=== PATIENT | female | born 2005 | race African-American/Black ===

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

== ENCOUNTER 2023-03-04 21:56 | Inpatient (IN) | payer MEDICAID, OTHER ==
[~2023-03-04] VITALS: Ht 172.7 cm; Wt 120.9 kg
[2023-03-04 22:09] VITALS: BP 134/76
[2023-03-04] MEDS ORDERED: LACTATED RINGERS 1,000 ML 500 ML IV PRN (22:30)
[2023-03-04] MEDS ORDERED: MINERAL OIL 30 ML UDC TOP PRN (22:30)
[2023-03-04 22:59] LABS: BASOPHILS % (AUTO) 0 % (0-10); EOSINOPHILS # (AUTO) 0.1 10^3/uL (0.0-0.3); EOSINOPHILS % (AUTO) 1 % (0-10); HEMATOCRIT 26 % (35-52); LYMPHOCYTES # (AUTO) 2.2 10^3/uL (1.0-4.0); LYMPHOCYTES % (AUTO) 23 % (12-44); MEAN CORPUSCULAR HEMOGLOBIN 24 pg (25-34); MEAN CORPUSCULAR HGB CONC 31 g/dL (32-36); MEAN CORPUSCULAR VOLUME 76 fL (80-99); MEAN PLATELET VOLUME 11.9 fL (9.0-12.2); MONOCYTES # (AUTO) 0.7 10^3/uL (0.0-1.0); MONOCYTES % (AUTO) 7 % (0-12); NEUTROPHILS # (AUTO) 6.6 10^3/uL (1.8-7.8); NEUTROPHILS % (AUTO) 69 % (42-75); PLATELET COUNT 223 10^3/uL (130-400); WHITE BLOOD COUNT 9.6 10^3/uL (4.3-11.0)
[2023-03-04] MEDS: D5 LR 1,000 ML IV SOLN 1,000 ML IV SCH (23:45)
[2023-03-04] MEDS ORDERED: D5 LR 1,000 ML IV SOLN 1,000 ML IV ONE (23:46)
[2023-03-05] VITALS (63 sets, daily range): BP systolic 87–147; BP diastolic 48–85
[2023-03-05] MEDS ORDERED: fentaNYL 2 mcg/ml BUPIVA 0.125 100 ML ONE (01:21)
[2023-03-05] MEDS: fentaNYL 2 mcg/ml BUPIVA 0.125 100 ML EPI SCH ×2 (02:29→10:11)
[2023-03-05] MEDS ORDERED: METOCLOPRAMIDE INJ 10 MG/2 ML IV PRN (03:15)
[2023-03-05] MEDS ORDERED: NALOXONE 0.4 MG/ML 1 ML VIAL IV PRN ×2 (03:15)
[2023-03-05] MEDS ORDERED: LACTATED RINGERS 1,000 ML 1,000 ML IV SCH (03:15)
[2023-03-05] MEDS ORDERED: ONDANSETRON INJECTION 4 MG/2 ML (SDV) IV PRN (03:15)
[2023-03-05] MEDS ORDERED: diphenhydrAMINE INJ 50 MG/ML VIAL IV PRN (03:15)
[2023-03-05] MEDS ORDERED: CATHETER FLUSH 10 ML SYR IV SCH ×2 (06:00→22:00)
[2023-03-05] MEDS ORDERED: OXYTOCIN DRIP PRE-MIX 500 ML IV SCH (08:15)
--- NOTE | 2023-03-05 08:28 | Diagnostic Imaging Report ---
INDICATION: TECHNIQUE: Multiple real-time grayscale images were obtained over the gravid uterus. COMPARISON: None FINDINGS: Anterior placenta. No melani-placental hemorrhage. Biometrical measurements are as follows: Biparietal 9.61 cm, age 39 weeks 2 days. Head circumference 33.70 cm, age 38 weeks 5 days. Abdominal circumference 35.36 cm, age 39 weeks 2 days. Femur length 7.69 cm, age 39 weeks 3 days. Sonographic estimate age: 39 weeks 2 days. Sonographic estimated date of delivery: 03/09/23. Estimated Weight: 3718 gm (+/- 543 gm). LMP percentile: 67%. heart rate: 147 beats per minute. number: 1 of 1. IMPRESSION: Single live intrauterine measuring at 39 weeks and 2 days with heart tones of 147 BPM. No placental abnormality identified. Dictated by: Dictated on workstation # [id number]
[2023-03-05] MEDS: D5 LR 1,000 ML IV SOLN 1,000 ML IV SCH (08:49)
--- NOTE | 2023-03-05 09:07 | History & Physical-OB ---
OB - Chief Complaint & HPI Date/Time Date of Admission: Date of Admission: Mar 04, 2023 at 22:16 Date seen by a Provider: Mar 05, 2023 Time Seen by a Provider: 07:30 Chief Complaint/History OB-Reason for Admission/Chief: Vaginal bleeding Hx : 2 Hx Para: 2 Expected Date of Delivery: Mar 08, 2023 Gestational Age in Weeks: 39 Gestational Age in Days: 3 Other reason for admission: 17 yo F that presented to L&D after feeling a pop and now having vaginal bleeding. Denies any pain but having some cramping. FHT reactive History of Labs O+, Ab neg, Rub Imm HIV/RPR/HepB/C NR GBS neg Allergies and Home Medications Allergies Coded Allergies: No Known Drug Allergies (Unverified , 05/21/10) Patient Home Medication List Home Medication List Reviewed: Yes Famotidine (Pepcid) 20 Mg Tablet, 20 MG PO BID Prescribed by: JORGE AZUL on 03/24/15 1449 Ferrous Sulfate (Iron) 325 Mg Tablet, 325 MG PO DAILY, (Reported) Entered as Reported by: CHAD YOUNG on 02/03/211955 Vit No.124/Iron/FA ( Vitamin Tablet) 1 Each Tablet, 1 EACH PO DAILY, (Reported) Entered as Reported by: CHAD YOUNG on 02/03/211954 OB - History Hx of Present Care: Yes Obstetrical Complications: None Medical Complications: None Obstetrical History Hx : 2 Hx Para: 1 Number of Living Children: 1 Delivery History Hx Blood Disorders: No Adverse Rxn to Tranfusion: No Patient Past Medical History no chronic medical problems Social History/Family History Alcohol Use: Denies Use Recreational Drug Use: No 2nd Hand Smoke Exposure: Yes Immunizations Influenza Vaccine Up-to-Date: No; Not Current Tetanus Booster (TDap): Less than 5yrs Rubella: immune RPR/VDRL: Negative GBS Status: Negative HBsAG: Negative OB - Admission Exam Physical Exam Vitals: Vital Signs 03/05/23 03/05/23 03/05/23 03/05/23 07:00 07:10 07:55 08:40 Temp 36.4 Pulse 87 Resp 18 B/P (MAP) 106/56 (73) Pulse Ox 100 O2 Delivery Room Air HEENT: NCAT Heart: Rhythm Normal Lungs: Clear Abdomen: Gravid Cervical Dilatation: 4cm Effacement: 75% Station: -1 Membranes: Ruptured Amniotic Fluid: Other (bloody) Heart Rate: 140's Accelerations: Accelerations Present Decelerations: No Decelerations Short Term Variability: Present Associate Professor Of Anthropology Variability: Average (6-25) Contractions on Admission: >10 Minutes Apart Intensity: Moderate Labs Laboratory Tests Test 03/04/23 22:45 Range/Units White Blood Count 9.6 4.3-11.0 10^3/uL Red Blood Count 3.36 L 3.80-5.11 10^6/uL Hemoglobin 8.0 L 11.5-16.0 g/dL Hematocrit 26 L 35-52 % Mean Corpuscular Volume 76 L 80-99 fL Mean Corpuscular Hemoglobin 24 L 25-34 pg Mean Corpuscular Hemoglobin Concent 31 L 32-36 g/dL Red Cell Distribution Width 16.0 H 10.0-14.5 % Platelet Count 223 130-400 10^3/uL Mean Platelet Volume 11.9 9.0-12.2 fL Immature Granulocyte % (Auto) 1 % Neutrophils (%) (Auto) 69 42-75 % Lymphocytes (%) (Auto) 23 12-44 % Monocytes (%) (Auto) 7 0-12 % Eosinophils (%) (Auto) 1 0-10 % Basophils (%) (Auto) 0 0-10 % Neutrophils # (Auto) 6.6 1.8-7.8 10^3/uL Lymphocytes # (Auto) 2.2 1.0-4.0 10^3/uL Monocytes # (Auto) 0.7 0.0-1.0 10^3/uL Eosinophils # (Auto) 0.1 0.0-0.3 10^3/uL Basophils # (Auto) 0.0 0.0-0.1 10^3/uL Immature Granulocyte # (Auto) 0.1 0.0-0.1 10^3/uL Syphilis Total Antibody Negative Negative OB - Assessment/Plan/Diagnosis Assessment Assessment: active labor, rupture of membranes, vaginal bleeding Admission Dx Third Trimester 39 weeks gestation Vaginal bleeding in Asymptomatic anemia in Admission Status: Inpatient Order (span 2 midnights) Reason for Inpatient Admission: Labor and immediate post care Plan Plan: Expectant Management Other Plan 17 yo @ 39.3 wga here for active labor and vaginal bleeding Plan - Expectant management - GBS neg - Will continue to monitor bleeding, mother HDS and FHT reactive CHARISMA JACKSON MD Mar 05, 2023 09:07
[2023-03-05] MEDS: OXYTOCIN DRIP PRE-MIX 500 ML IV SCH ×2 (12:45→13:00)
[2023-03-05] MEDS ORDERED: LIDOCAINE 2% w/EPI 1:200,000 20 ML VIAL ONE (12:46)
[2023-03-05] MEDS ORDERED: BENZOCAINE/MENTHOL (DERMOPLAST) 56 ML CAN TP PRN (14:15)
[2023-03-05] MEDS ORDERED: Tetanus/Diphtheria/Pertussis (Acell) ADULT Vaccine 0.5 ML IM ONE (14:15)
[2023-03-05] MEDS ORDERED: DIBUCAINE 1% OINTMENT 28 GM TUBE TOP PRN (14:15)
[2023-03-05] MEDS ORDERED: MEASLES, MUMPS, RUBELLA VACCINE (MMR) SQ ONE (14:15)
[2023-03-05] MEDS ORDERED: WITCH HAZEL(TUCKS) 40 EA JAR TOP PRN (14:15)
[2023-03-05] MEDS: IBUPROFEN 600 MG TABLET PO SCH ×2 (15:05→21:07)
[2023-03-05] MEDS: ACETAMINOPHEN 500 MG TABLET PO SCH ×2 (15:06→21:07)
--- NOTE | 2023-03-05 18:18 | OB Labor & Delivery Record ---
Vag Delivery Note Vag Delivery Note Date of Delivery: 03/05/23 Preoperative Diagnosis: Ralph Marvin is a (17 /Para 2 / 1,Gestational Age (wks)39.3 wga here in active labor and vaginal bleeding Postoperative Diagnosis: Same Attending Surgeon/Physician: Charisma Soares MD Customer Service Agent: None Anesthesia: Epidural Delivery Type: @ 1239 Findings: Viable female , apgars 8/9, weight 7#3, 3270 grams Lacerations: 2nd degree perineal Intact placenta with 3 vessel cord. Nuchal cord x2(easily reduced @ delivery of head), No body cord or shoulder dystocia Estimated Blood Loss: 150 ml Complications: None Condition: Stable Description of Procedure: The patient is a 17 year old female who presented in active labor and vaginal bleeding. She was admitted and informed consent was obtained. Her labor course was remarkable for vaginal bleeding and pitocin augmentation. She progressed to complete dilatation and began to push. She was then set up for delivery. The 's head was delivered atraumatically in the TEE position. The shoulders and remainder of the infant's body were then delivered without difficulty. Upon delivery, the infant was vigorous and placed on maternal chest and the mouth and nares were bulb suctioned. After a 3 min delay cord was doubly clamped and cut by family of mother and the infant remained on maternal chest. An intact placenta with 3-vessel cord delivered via Jenn and there was found to be minimal bleeding.~ Vigorous fundal massage was performed and the fundus was found to be firm. IV oxytocin was given. Examination of the vagina and perineum revealed a 2nd degree perinal laceration repaired in the usual fashion with 3-0 vicryl rapide suture. Following the repair, sponge, instrument and needle counts were correct. Mom and baby were both in stable condition in the labor suite. Vitals - Labs Vital Signs - I&O Vital Signs Date Time Temp Pulse Resp B/P (MAP) Pulse Ox O2 Delivery O2 Flow Rate FiO2 03/05/23 14:53 99 124/59 (80) 03/05/23 14:39 101 114/62 (79) 03/05/23 14:23 86 123/71 (88) 03/05/23 14:08 96 119/62 (81) 03/05/23 13:54 36.9 95 20 114/56 (75) Room Air 03/05/23 13:24 88 20 117/59 (78) 100 Room Air 03/05/23 13:08 98 118/57 (77) 03/05/23 12:55 107 123/56 (78) 03/05/23 12:25 113 126/60 (82) 03/05/23 12:10 36.1 109 128/62 (84) 03/05/23 11:55 103 120/66 (84) 03/05/23 11:40 111 117/69 (85) 03/05/23 11:25 98 128/60 (82) 03/05/23 11:10 103 116/62 (80) 03/05/23 10:55 85 116/58 (77) 03/05/23 10:40 36.0 96 105/50 (68) Room Air 03/05/23 10:25 96 116/58 (77) Room Air 03/05/23 10:10 96 111/56 (74) Room Air 03/05/23 09:55 101 88/51 (63) Room Air 03/05/23 09:40 83 107/52 (70) Room Air 03/05/23 09:25 94 108/53 (71) Room Air 03/05/23 09:10 87 107/51 (69) Room Air 03/05/23 08:55 83 105/51 (69) Room Air 03/05/23 08:40 87 106/56 (73) Room Air 03/05/23 08:30 88 103/52 (69) Room Air 03/05/23 08:10 89 127/70 (89) Room Air 03/05/23 07:55 36.4 109 137/66 (89) Room Air 03/05/23 07:10 102 131/76 (94) 100 Room Air 03/05/23 07:00 101 18 118/61 (80) 100 Room Air 03/05/23 06:45 89 18 92/54 (67) 97 Room Air 03/05/23 06:30 91 18 87/48 (61) 98 Room Air 03/05/23 06:15 86 18 98/50 (66) 98 Room Air 03/05/23 06:00 86 18 96/49 (65) 99 Room Air 03/05/23 05:31 88 18 103/51 (68) 99 Room Air 03/05/23 04:47 99 18 105/59 (74) 98 Room Air 03/05/23 04:34 98 18 115/60 (78) 100 Room Air 03/05/23 04:23 102 20 106/54 (71) 98 Room Air 03/05/23 04:12 93 20 121/64 (83) 98 Room Air 03/05/23 04:02 98 20 120/64 (82) 99 Room Air 03/05/23 03:53 106 20 119/64 (82) 100 Room Air 03/05/23 03:43 107 20 126/65 (85) 100 Room Air 03/05/23 03:33 112 20 147/74 (98) 100 Room Air 03/05/23 03:22 37.0 100 20 111/55 (73) 100 Room Air 03/05/23 03:10 85 20 126/67 (86) 100 Room Air 03/05/23 03:05 94 20 118/65 (82) 100 Room Air 03/05/23 03:00 100 20 116/62 (80) 100 Room Air 03/05/23 02:55 83 20 129/69 (89) 100 Room Air 03/05/23 02:50 100 20 115/58 (77) 100 Room Air 03/05/23 02:45 98 20 127/59 (81) 100 Room Air 03/05/23 02:40 88 20 131/63 (85) 100 Room Air 03/05/23 02:35 92 20 125/57 (79) 100 Room Air 03/05/23 02:30 89 20 129/75 (93) 100 Room Air 03/05/23 02:27 85 20 136/59 (84) 100 Room Air 03/05/23 02:25 106 20 130/75 (93) 100 Room Air 03/05/23 02:23 94 20 138/67 (90) 100 Room Air 03/05/23 02:21 98 20 131/63 (85) 100 Room Air 03/05/23 02:18 99 20 131/70 (90) 100 Room Air 03/05/23 02:15 100 20 135/75 (95) 100 Room Air 03/05/23 02:13 36.8 106 20 135/85 (102) Room Air 03/05/23 00:15 36.9 95 20 118/60 (79) Room Air 03/04/23 22:09 37.0 97 18 100 Room Air 03/04/23 22:09 37.0 97 18 134/76 (95) 100 Room Air Labs Laboratory Tests 03/04/23 22:45: White Blood Count 9.6, Red Blood Count 3.36L, Hemoglobin 8.0L, Hematocrit 26L, Mean Corpuscular Volume 76L, Mean Corpuscular Hemoglobin 24L, Mean Corpuscular Hemoglobin Concent 31L, Red Cell Distribution Width 16.0H, Platelet Count 223, Mean Platelet Volume 11.9, Immature Granulocyte % (Auto) 1, Neutrophils (%) (Auto) 69, Lymphocytes (%) (Auto) 23, Monocytes (%) (Auto) 7, Eosinophils (%) (Auto) 1, Basophils (%) (Auto) 0, Neutrophils # (Auto) 6.6, Lymphocytes # (Auto) 2.2, Monocytes # (Auto) 0.7, Eosinophils # (Auto) 0.1, Basophils # (Auto) 0.0, Immature Granulocyte # (Auto) 0.1, Syphilis Total Antibody Negative CHARISMA SOARES MD Mar 05, 2023 18:18
[2023-03-05] MEDS: DOCUSATE SODIUM 100 MG CAPSULE PO SCH (21:07)
[2023-03-06 03:31] VITALS: BP 126/56
[2023-03-06] MEDS: ACETAMINOPHEN 500 MG TABLET PO SCH ×2 (03:32→10:36)
[2023-03-06] MEDS: IBUPROFEN 600 MG TABLET PO SCH ×2 (03:32→10:35)
[2023-03-06 06:02] LABS: BASOPHILS % (AUTO) 0 % (0-10); EOSINOPHILS # (AUTO) 0.1 10^3/uL (0.0-0.3); EOSINOPHILS % (AUTO) 1 % (0-10); HEMATOCRIT 21 % (35-52); LYMPHOCYTES % (AUTO) 26 % (12-44); MEAN CORPUSCULAR HEMOGLOBIN 23 pg (25-34); MEAN CORPUSCULAR HGB CONC 31 g/dL (32-36); MEAN CORPUSCULAR VOLUME 76 fL (80-99); MEAN PLATELET VOLUME 11.5 fL (9.0-12.2); MONOCYTES # (AUTO) 0.6 10^3/uL (0.0-1.0); MONOCYTES % (AUTO) 8 % (0-12); NEUTROPHILS # (AUTO) 4.8 10^3/uL (1.8-7.8); NEUTROPHILS % (AUTO) 64 % (42-75); PLATELET COUNT 200 10^3/uL (130-400); WHITE BLOOD COUNT 7.5 10^3/uL (4.3-11.0)
[2023-03-06 06:11] LABS: HEMOGLOBIN 6.5 g/dL (11.5-16.0)
[2023-03-06] MEDS ORDERED: IRON SUCROSE 200 MG/10 ML VIAL IV NR (07:00)
[2023-03-06] MEDS ORDERED: PRENATAL VITAMIN TABLET PO SCH (07:00)
[2023-03-06 08:00] VITALS: BP 112/57
[2023-03-06] MEDS: DOCUSATE SODIUM 100 MG CAPSULE PO SCH (08:43)
[2023-03-06] MEDS ORDERED: FERROUS SULFATE 325 MG (IRON) TABLET PO SCH (09:00)
--- NOTE | 2023-03-06 09:33 | Anesthesia-Regional Post-Op ---
Regional Patient Condition Mental Status: Alert, Oriented x3 Circulation: Same as Pre-Op Headache: Absent Sensation: Full Recovery Motor Block: Absent Post Op Complications Complications None Follow Up Care/Instructions Patient Instructions None needed. Anesthesia/Patient Condition Patient is doing well, no complaints, stable vital signs, no apparent adverse anesthesia problems. No complications reported per nursing. NOAH JULIAN CRNA Mar 06, 2023 09:33
[2023-03-06] MEDS ORDERED: IBUP-844 PO (11:18)
--- NOTE | 2023-03-06 11:19 | Discharge Inst-Women's Service ---
Discharge Inst-Women's Serv Depart Medication/Instructions New, Converted or Re-Newed RX: Transmitted to Pharmacy ([facility] [place]) Problems Reviewed?: Yes Consults/Follow Up Additional Follow Up: Yes (Dr. Soares in 6 weeks) Activity Driving Instructions: No Driving for 1 Week Nothing Inside Vagina: No [place] (For 6 weeks) Diet Discharge Diet: Regular Diet Return to The Hospital For: As below Symptoms to Report to : Bleeding Excessive, Fever Over 101 Degrees F, Vaginal Discharge Foul For Any Problems or Questions: Contact Your Physician HALLIE FRANZ MD Mar 06, 2023 11:19
--- NOTE | 2023-03-06 11:23 | Discharge Summary ---
Diagnosis/Chief Complaint Date of Admission Mar 04, 2023 at 22:16 Date of Discharge March 06, 2023 Admission Diagnosis Admission Diagnosis 1. Intrauterine at 39 weeks gestation 2. Anemia iron deficient Discharge Diagnosis 1. Intrauterine at 39 weeks gestation 2. Anemia iron deficient Chief Complaint/HPI Chief Complaint/HPI 17-year-old 2 now term to L2 who initially presented to labor and delivery during the evening of March 04, 2023 with vaginal bleeding. She had heard a pop and that prompted her to come out in addition to the bleeding she was having. She ultimately underwent ultrasound with a low JE noted at 5. It was noted her membranes had ruptured. Discharge Summary-OBS Procedures 1. Epidural per anesthesia 2. Spontaneous vaginal delivery 3. Repair of second-degree perineal laceration Discharge Physical Examination Allergies: Coded Allergies: No Known Drug Allergies (Unverified , 05/21/10) Vitals & I&Os Intake and Output 03/06/23 00:00 Intake Total 1500 ml Balance 1500 ml Vital Sign - Last 12Hours Date Time Temp Pulse Resp B/P (MAP) Pulse Ox O2 Delivery O2 Flow Rate FiO2 03/06/23 08:00 36.7 87 20 112/57 (75) 98 Room Air General Appearance: No Acute Distress Respiratory: Clear to Auscultation Cardiovascular: Regular Rate Abdominal: Soft (With uterus firm) Hospital Course Was the Problem List Reviewed?: Yes following admission the patient underwent observation of the vaginal bleeding which had slowed down during the sports physician of March 05, 2023. She ultimately underwent epidural for pain relief. Labor course ensued and she ultimately delivered a term viable female with Apgars of 8 at 1 minute and 9 at 5 minutes. See labor and delivery note for full details. Following delivery she underwent routine care orders she did however receive iron sucrose 200 mg IV in the morning of March due to a low hemoglobin. She remained asymptomatic not having any low blood pressure or dizziness. She was eager for dismissal during the afternoon of March. She will follow up with Dr. Soares in 6 weeks. She is also placed on iron supple ment when she goes home. Labs Laboratory Tests 03/06/23 05:45: White Blood Count 7.5, Red Blood Count 2.78L, Hemoglobin 6.5*L, Hematocrit 21L, Mean Corpuscular Volume 76L, Mean Corpuscular Hemoglobin 23L, Mean Corpuscular Hemoglobin Concent 31L, Red Cell Distribution Width 16.1H, Platelet Count 200, Mean Platelet Volume 11.5, Immature Granulocyte % (Auto) 1, Neutrophils (%) (Auto) 64, Lymphocytes (%) (Auto) 26, Monocytes (%) (Auto) 8, Eosinophils (%) (Auto) 1, Basophils (%) (Auto) 0, Neutrophils # (Auto) 4.8, Lymphocytes # (Auto) 2.0, Monocytes # (Auto) 0.6, Eosinophils # (Auto) 0.1, Basophils # (Auto) 0.0, Immature Granulocyte # (Auto) 0.1 Discharge Instructions to patient/family Please see electronic discharge instructions given to patient. Discharge Medications Reviewed and agree with Discharge Medication list on patient's Discharge Instruction sheet HALLIE FRANZ MD Mar 06, 2023 11:23
== END 2023-03-06 14:50 | disposition home or self-care (01) | DRG 807 ==
LOC: WSo 21:56 → LDRP 21:58 → WSo 22:16 → LDRP 03-05 15:35
PROVIDERS: ADMIT Family Medicine; ATTEND Family Medicine
PROC: 10E0XZZ Delivery of Products of Conception, External Approach (ICD-10-PCS; principal; 2023-03-05)
PROC: 0KQM0ZZ Repair Perineum Muscle, Open Approach (ICD-10-PCS; 2023-03-05)
DX: O67.8 Other intrapartum hemorrhage (principal); Z37.0 Single live birth; Z3A.39 39 weeks gestation of pregnancy; O70.1 Second degree perineal laceration during delivery; O99.013 Anemia complicating pregnancy, third trimester; O69.81X0 Labor and delivery complicated by cord around neck, without compression, not applicable or unspecified
CPT/HCPCS: 36415; 76805; 85025; 86780; 86850; 86900; 86901; 99212

== ENCOUNTER 2023-03-09 23:05 | Observation (INO) | payer MEDICAID, OTHER ==
[~2023-03-09] VITALS: Ht 172 cm; Wt 120.9 kg
[~2023-03-09 23:05] MED LIST changes: +IBUP-844 PO
[2023-03-09 23:49] LABS: BASOPHILS % (AUTO) 0 % (0-10); EOSINOPHILS # (AUTO) 0.2 10^3/uL (0.0-0.3); EOSINOPHILS % (AUTO) 3 % (0-10); HEMATOCRIT 23 % (35-52); LYMPHOCYTES # (AUTO) 1.5 10^3/uL (1.0-4.0); LYMPHOCYTES % (AUTO) 19 % (12-44); MEAN CORPUSCULAR HEMOGLOBIN 24 pg (25-34); MEAN CORPUSCULAR HGB CONC 31 g/dL (32-36); MEAN CORPUSCULAR VOLUME 78 fL (80-99); MEAN PLATELET VOLUME 11.3 fL (9.0-12.2); MONOCYTES # (AUTO) 0.4 10^3/uL (0.0-1.0); MONOCYTES % (AUTO) 5 % (0-12); NEUTROPHILS # (AUTO) 6.1 10^3/uL (1.8-7.8); NEUTROPHILS % (AUTO) 73 % (42-75); PLATELET COUNT 257 10^3/uL (130-400); WHITE BLOOD COUNT 8.3 10^3/uL (4.3-11.0)
[2023-03-09 23:57] LABS: ALBUMIN 3.2 GM/DL (3.2-4.5)
[2023-03-09] MEDS ORDERED: HYDROcodone/ACETAMINOPHEN 7.5 MG/325 MG TABLET PO STA (23:57)
[2023-03-09 23:58] LABS: POTASSIUM 3.5 MMOL/L (3.6-5.0)
[2023-03-09 23:59] LABS: CALCIUM 8.3 MG/DL (8.5-10.1)
[2023-03-10] VITALS (10 sets, daily range): BP systolic 103–150; BP diastolic 76–97
[2023-03-10] LABS: TOTAL PROTEIN 6.5 GM/DL (6.4-8.2)
[2023-03-10 00:02] LABS: BILIRUBIN,TOTAL 0.2 MG/DL (0.1-1.0)
[2023-03-10 00:04] LABS: CREATININE SERUM 0.78 MG/DL (0.60-1.30)
[2023-03-10 00:06] LABS: MAGNESIUM 1.8 MG/DL (1.6-2.4)
--- NOTE | 2023-03-10 00:39 | ED General ---
General Chief Complaint: (<6 weeks) Stated Complaint: HEART PALPITATIONS Nursing Triage Note: PT AMBULATES TO ROOM #10 W/CC HEART PALPITATIONS AND SHORTNESS OF BREATH. PT REPORTS SHE HAD A VAGINAL DELIVERY ON 03/05/23. PT REPORTS SINCE BEING DC'D FROM HOSPITAL AFTER DELIVERY, SHE HAS BEEN EXPERIENCING INTERMITTENT HEART PALPITATIONS AND SHORTNESS OF BREATH. PT REPORTS SHE FEELS A SENSATION OF HER "HEART RACING AND POUNDING HEAVY" WHEN SHE LAYS DOWN AND UPON EXERTION. PT REPORTS INTERMITTENT EXERTIONAL SHORTNESS OF BREATH. PT REPORTS SHE BEGAN TO EXPERIENCE SWELLING TO BILATERAL LOWER EXTREMITIES SINCE DC AFTER VAGINAL DELIVER. +2 NON PITTING EDEMA NOTED TO BILATERAL LOWER EXTREMITIES. PT ADAMANTLY DENIES CHEST PAIN STATING, "ITS NOT A PAIN, JUST FEELS LIKE MY HEART IS POUNDING HARD." PT REPORTS SHE HAS NO CONTACTED HER OB, DR. JACKSON, FOR SX. INITIAL BP 142/93. PT DENIES PAIN OR FEVER. Source of Information: Patient Exam Limitations: No Limitations History of Present Illness Date Seen by Provider: Mar 09, 2023 Time Seen by Provider: 23:28 Initial Comments Report of heart palpitations and shortness of breath. States that every time she stands that she gets short of breath and has heart palpitations. She is status post vaginal delivery on 03/05/2023 here. Baby is doing fine. She states that she had blood in her fluid when she delivered. Her hemoglobin was apparently low and they tried to give her iron but it failed. She reports swelling of her feet and ankles which is new. Denies high blood pressure during . She does have mild hypertension now. Denies chest pain, nausea, vomiting or diarrhea. She did have constipation after delivery but has since had a stool. Timing/Duration: 12-24 Hours, Getting Worse Severity: Moderate Associated Systoms: No Cough, No Fever/Chills, No Nausea/Vomiting; Shortness of Air; No Weakness Allergies and Home Medications Allergies Coded Allergies: No Known Drug Allergies (Unverified , 05/21/10) Patient Home Medication List Home Medication List Reviewed: Yes Famotidine (Pepcid) 20 Mg Tablet, 20 MG PO BID Prescribed by: JORGE AZUL on 03/24/15 1074 Ferrous Sulfate (Iron) 325 Mg Tablet, 325 MG PO DAILY, (Reported) Entered as Reported by: CHAD YOUNG on 02/03/211955 Ibuprofen (Ibu) 600 Mg Tablet, 600 MG PO Q6H Prescribed by: HALLIE FRANZ on 03/06/23 1118 Vit No.124/Iron/FA ( Vitamin Tablet) 1 Each Tablet, 1 EACH PO DAILY, (Reported) Entered as Reported by: CHAD YOUNG on 02/03/211954 Review of Systems Review of Systems Constitutional: see HPI; No chills, No fever EENTM: No nose congestion, No throat pain Respiratory: No cough; short of breath Cardiovascular: No chest pain; edema, palpitations Gastrointestinal: No nausea, No vomiting Genitourinary: no symptoms reported : No Expected Date of Delivery: Mar 05, 2023 Psychiatric/Neurological: No Symptoms Reported Hematologic/Lymphatic: No Symptoms Reported Past Amktqoz-Hkfxbu-Eqiwek Hx Patient Social History Tobacco Use?: No Use of E-Cig and/or Vaping dev: No Substance use?: No Alcohol Use?: No Immunizations Up To Date Tetanus Booster (TDap): Less than 5yrs PED Vaccines UTD: Yes Seasonal Allergies Seasonal Allergies: Yes Past Medical History Surgeries: No Tonsillectomy Neurological: No : No Expected Date of Delivery: Mar 05, 2023 Reproductive Disorders: No Female Reproductive Disorders: Denies Sexually Transmitted Disease: No HIV/AIDS: No Gastrointestinal: No Musculoskeletal: No ADD/ADHD Adverse Reaction/Blood Tranf: No Family Medical History Reviewed Nursing Family Hx No Pertinent Family Hx Physical Exam Vital Signs Vital Signs - First Documented 03/09/23 23:12 Temp 37.1 Pulse 93 Resp 16 B/P (MAP) 142/93 (109) Pulse Ox 98 O2 Delivery Room Air Capillary Refill : Less Than 3 Seconds Height, Weight, BMI Height: 5'96" Weight: 160lbs. oz. 72.053583qb; 225.00 BMI Method:Stated General Appearance: No Apparent Distress, WD/WN HEENT: PERRL/EOMI, Pharynx Normal Neck: Non Tender, Supple Respiratory: Lungs Clear, Normal Breath Sounds Cardiovascular: Regular Rate, Rhythm, No Murmur Gastrointestinal: Non Tender, Soft Extremity: Pedal Edema (1+ to above ankles bilateral) Neurologic/Psychiatric: Alert, Oriented x3 Skin: Normal Color, Warm/Dry Progress/Results/Core Measures Suspected Sepsis SIRS Temperature: Pulse: 93 Respiratory Rate: 16 Laboratory Tests 03/09/23 23:40: White Blood Count 8.3 Blood Pressure 142 /93 Mean: 109 Laboratory Tests 03/09/23 23:40: Creatinine 0.78, Platelet Count 257, Total Bilirubin 0.2 Results/Orders Lab Results Laboratory Tests Test 03/09/23 23:40 03/10/23 00:17 Range/Units White Blood Count 8.3 4.3-11.0 10^3/uL Red Blood Count 2.92 L 3.80-5.11 10^6/uL Hemoglobin 7.0 L 11.5-16.0 g/dL Hematocrit 23 L 35-52 % Mean Corpuscular Volume 78 L 80-99 fL Mean Corpuscular Hemoglobin 24 L 25-34 pg Mean Corpuscular Hemoglobin Concent 31 L 32-36 g/dL Red Cell Distribution Width 16.8 H 10.0-14.5 % Platelet Count 257 130-400 10^3/uL Mean Platelet Volume 11.3 9.0-12.2 fL Immature Granulocyte % (Auto) 1 % Neutrophils (%) (Auto) 73 42-75 % Lymphocytes (%) (Auto) 19 12-44 % Monocytes (%) (Auto) 5 0-12 % Eosinophils (%) (Auto) 3 0-10 % Basophils (%) (Auto) 0 0-10 % Neutrophils # (Auto) 6.1 1.8-7.8 10^3/uL Lymphocytes # (Auto) 1.5 1.0-4.0 10^3/uL Monocytes # (Auto) 0.4 0.0-1.0 10^3/uL Eosinophils # (Auto) 0.2 0.0-0.3 10^3/uL Basophils # (Auto) 0.0 0.0-0.1 10^3/uL Immature Granulocyte # (Auto) 0.0 0.0-0.1 10^3/uL Sodium Level 140 135-145 MMOL/L Potassium Level 3.5 L 3.6-5.0 MMOL/L Chloride Level 109 H 98-107 MMOL/L Carbon Dioxide Level 19 L 21-32 MMOL/L Anion Gap 12 5-14 MMOL/L Blood Urea Nitrogen 12 7-18 MG/DL Creatinine 0.78 0.60-1.30 MG/DL Estimat Glomerular Filtration Rate 112 BUN/Creatinine Ratio 15 Glucose Level 78 70-105 MG/DL Calcium Level 8.3 L 8.5-10.1 MG/DL Corrected Calcium 8.9 8.5-10.1 MG/DL Magnesium Level 1.8 1.6-2.4 MG/DL Total Bilirubin 0.2 0.1-1.0 MG/DL Aspartate Amino Transf (AST/SGOT) 26 5-34 U/L Alanine Aminotransferase (ALT/SGPT) 32 0-55 U/L Alkaline Phosphatase 195 H 40-136 U/L B-Type Natriuretic Peptide 192.9 H <100.0 PG/ML Total Protein 6.5 6.4-8.2 GM/DL Albumin 3.2 3.2-4.5 GM/DL Urine Color YELLOW Urine Clarity CLEAR Urine pH 6.0 5-9 Urine Specific [place] 1.020 1.016-1.022 Urine Protein NEGATIVE NEGATIVE Urine Glucose (UA) NEGATIVE NEGATIVE Urine Ketones NEGATIVE NEGATIVE Urine Nitrite NEGATIVE NEGATIVE Urine Bilirubin NEGATIVE NEGATIVE Urine Urobilinogen 1.0 < = 1.0 MG/DL Urine Leukocyte Esterase TRACE H NEGATIVE Urine RBC (Auto) 1+ H NEGATIVE Urine RBC 5-10 H /HPF Urine WBC 0-2 /HPF Urine Squamous Epithelial Cells 2-5 /HPF Urine Crystals PRESENT H /LPF Urine Amorphous Sediment FEW YANE URATES H /LPF Urine Bacteria TRACE /HPF Urine Casts NONE /LPF Urine Mucus SMALL H /LPF Urine Culture Indicated NO My Orders Orders - JOHN BENOIT MD Ekg Tracing (03/09/23 23:17) Cbc And Automated Diff (03/09/23 23:27) Comprehensive Metabolic Panel (03/09/23 23:27) Magnesium (03/09/23 23:27) Ua Culture If Indicated (03/09/23 23:27) Ed Iv/Invasive Line Start (03/09/23 23:27) Straight Cath For Spec.-Adult (03/09/23 23:27) Wound Culture (03/09/23 23:57) Red Cells Leukocytes Reduced (03/10/23 00:29) Type And Screen (03/10/23 00:29) Chest 1 View, Ap/Pa Only (03/10/23 01:00) Ed Admission (Communication) (03/10/23 01:00) Code/Resuscitation (03/10/23 01:03) Vital Signs/I&O 03/09/23 23:12 Temp 37.1 Pulse 93 Resp 16 B/P (MAP) 142/93 (109) Pulse Ox 98 O2 Delivery Room Air Capillary Refill : Less Than 3 Seconds Blood Pressure Mean: 109 Progress Note : Progress Note Seen and evaluated. IV, labs including CBC, CMP, magnesium and UA ordered. UA via straight cath due to lochia flow ordered. Patient on monitor. Monitor patient. Differential diagnosis includes anemia, -induced hypertension, electrolyte abnormality, dehydration 0025: I have added type and cross for 2 units with 1 to given when to hold. I did speak with the family and consumer sciences teacher on-call, Dr. Gallegos. Patient to be admitted. CBC does show hemoglobin of 7 which is slightly improved but still very low compared to her delivery which was 6.5. Chemistries reviewed and grossly normal with normal LFTs and normal magnesium. UA is pending. Patient to be admitted. Dr. Gallegos has accepted. 0105: UA resulted and there is no protein in the urine and she does have trace blood but does have lochia flow. Admit, observation status. Patient will get transfused. Admitting team to write orders. ECG Initial ECG Impression Date: Mar 09, 2023 Initial ECG Impression Time: 23:22 Initial ECG Rate: 80 Initial ECG Rhythm: Normal Sinus Initial ECG Impression: Normal Initial ECG Comparisson: No Previous ECG Available Comment Sinus rhythm with normal axis. No evidence of ST elevation [place]. Interpreted by me. Departure Communication (Admissions) Time/Spoke to Admitting Phy: 00:28 Impression Primary Impression: Symptomatic anemia Disposition: HOME, SELF-CARE Condition: Improved Admissions Decision to Admit Reason: Admit from ER (General) Decision to Admit/Date: Mar 10, 2023 Time/Decision to Admit Time: 00:28 Departure-Patient Inst. Decision time for Depature: 00:25 Referrals: CHARISMA JACKSON MD (PCP/Family) Primary Care Physician JOHN BENOIT MD Mar 10, 2023 00:39
[2023-03-10 00:44] LABS: CLARITY,URINE CLEAR; COLOR,URINE YELLOW; GLUCOSE, URINE (UA) NEGATIVE (NEGATIVE); PROTEIN,URINE NEGATIVE (NEGATIVE)
[2023-03-10 00:45] LABS: AMORPHOUS SEDIMENT,UR FEW AMOR URATES /LPF; BACTERIA,URINE TRACE /HPF; BILIRUBIN,URINE NEGATIVE (NEGATIVE); KETONES,URINE NEGATIVE (NEGATIVE); LEUKOCYTE ESTERASE ,URINE TRACE (NEGATIVE); NITRITE,URINE NEGATIVE (NEGATIVE); WBC,URINE 0-2 /HPF
--- NOTE | 2023-03-10 01:30 | History & Physical ---
VICTORINA SOSA MD,RESIDENT 03/10/23 0130: HPI History of Present Illness: CC: palpitations, SOB, lower extremity swelling HPI: Pt is a 17yo PPD 4 s/p uncomplicated spontaneous vaginal delivery, PP anemia (6.5), who presents to the ED with worsening palpitations, SOB on ambulation, headaches, LE edema, and chest pressure that originally started PPD 1. She denies complications such as gHTN, gDMA, pre-eclampsia, etc. She states that she has felt these symptoms intermittently since delivery, however this evening when she woke up the chest pressure, palpitations, and SOB was worse. She reports normal PP lochia, rust-coloured discharge that has decreased since delivery, denies foul odor, or vaginal irritation. Her hgb PP was 6.5. She was scheduled to receive outpatient iron infusions earlier this week, however during the replacement, her IV line blew and she did not receive her iron. Hgb on admission is 7, BP ranges between 120-145 systolic, UA was neg ative for UTI and protein.Will admit to cardiac step down unit for further management. Source: patient Date seen by provider: Mar 10, 2023 Time Seen by Provider: 01:00 Attending Physician Rain Soares MD PCP Admitting Physician: Attending Physician: Consult Date of Admission Home Medications Home Medications Reviewed patient Home Medication Reconciliation performed by pharmacy medication reconciliations radiology technician and/or nursing. Patients Allergies have been reviewed. Allergies Coded Allergies: No Known Drug Allergies (Unverified , 05/21/10) IGL-Brvbsj-Jrldbn Hx Patient Social History 2nd Hand Smoke Exposure: Yes Alcohol Use?: No Immunizations Up To Date Tetanus Booster (TDap): Less than 5yrs Past Medical History no chronic medical problems Family Medical History Significant Family History: No Pertinent Family Hx Review of Systems ([facility]) Constitutional: see HPI EENTM: mouth pain Respiratory: short of breath Cardiovascular: palpitations Gastrointestinal: no symptoms reported Genitourinary: no symptoms reported Musculoskeletal: no symptoms reported Skin: no symptoms reported Psychiatric/Neurological: No Symptoms Reported Physical Exam-([facility]) Physical Exam Vital Signs VS - Last 72 Hours, by Label 03/09/23 23:12 Temp 37.1 Pulse 93 Resp 16 B/P (MAP) 142/93 (109) Pulse Ox 98 O2 Delivery Room Air Capillary Refill : Less Than 3 Seconds General Appearance: no apparent distress Eyes: Bilateral Eye EOMI HEENT: pharynx normal Neck: non-tender, full range of motion, supple Respiratory: chest non-tender, lungs clear, normal breath sounds, no respiratory distress Cardiovascular: no murmur, tachycardia Gastrointestinal: non tender, soft Extremities: pedal edema, swelling (BL LE) Neurologic/Psychiatric: alert, normal mood/affect, oriented x 3 Skin: warm/dry Lymphatic: no adenopathy Assessment/Plan Assessment/Plan Admission Dx anemia Admission Status: Observation Reason for Inpatient Admission: anemia Assessment & Plan Symptomatic PP anemia vs PP cardiomyopathy vs PE (1) anemia Status: Acute Assessment & Plan: PP hgb 6.5-->admission hgb 7 Symptomatic, headaches, palpitations, chest pressure PLAN: T & C Transfuse 1U pRBCs (2) Lower extremity edema Status: Acute Assessment & Plan: PLAN: Holding IVF (3) Chest pressure Status: Acute Assessment & Plan: Palpitations, headaches, SOB PLAN: Telemetry Echo BNP Tylenol and/or ibuprophen for pain KAREEM MORALES MD 03/10/23 1510: Home Medications Allergies Coded Allergies: No Known Drug Allergies (Unverified , 05/21/10) Supervisory-Addendum Brief Supervisory Addendum I personally performed the santos portions of the visit, discussed case with resident and concur with resident documentation of history, physical exam, assessment and treatment plan unless otherwise noted. I saw the patient at approximately 9:30 this morning, and she was feeling better. Admitted right sided headache that she related to dental pain on the right side. Denied upper abdominal pain. Left leg more swollen than right. BP has been mildly elevated, but she has no proteinuria or abnormal labs, we are considering preeclampsia, but does not meet criteria at this time, monitor closely. VICTORINA SOSA MD,RESIDENT Mar 10, 2023 01:30 KAREEM MORALES MD Mar 10, 2023 15:10
[2023-03-10] MEDS ORDERED: ONDANSETRON INJECTION 4 MG/2 ML (SDV) IV PRN (02:30)
[2023-03-10] MEDS ORDERED: ACETAMINOPHEN 325 MG TABLET PO PRN (02:30)
[2023-03-10] MEDS ORDERED: ONDANSETRON 4 MG ORAL DISSOLVE TABLET PO PRN (02:30)
[2023-03-10] MEDS ORDERED: CALCIUM CARBONATE 500 MG CHEW TABLET PO PRN (02:30)
[2023-03-10] MEDS ORDERED: MELATONIN 3 MG TABLET PO PRN (02:30)
[2023-03-10] MEDS: NS IV 500 ML 500 ML IV SCH ×2 (03:17→19:20)
[2023-03-10] MEDS: ENOXAPARIN 40 MG/0.4 ML SYRINGE SC SCH (03:17)
--- NOTE | 2023-03-10 07:46 | Diagnostic Imaging Report ---
EXAMINATION: Chest radiograph, portable AP view. DATE: 03/10/2023 1:29 AM INDICATION: 17-year-old female, shortness of breath. COMPARISON: None. FINDINGS: Heart size and mediastinal contours are unremarkable. There is no identified pneumothorax. There is no large pleural effusion. There is no identified focal airspace consolidation. IMPRESSION: 1. No identified acute cardiopulmonary abnormality. Dictated by: Dictated on workstation # [id number]
[2023-03-10 07:54] LABS: BASOPHILS % (AUTO) 0 % (0-10); EOSINOPHILS # (AUTO) 0.2 10^3/uL (0.0-0.3); EOSINOPHILS % (AUTO) 3 % (0-10); HEMATOCRIT 24 % (35-52); HEMOGLOBIN 7.5 g/dL (11.5-16.0); LYMPHOCYTES # (AUTO) 1.2 10^3/uL (1.0-4.0); LYMPHOCYTES % (AUTO) 18 % (12-44); MEAN CORPUSCULAR HEMOGLOBIN 25 pg (25-34); MEAN CORPUSCULAR HGB CONC 32 g/dL (32-36); MEAN CORPUSCULAR VOLUME 79 fL (80-99); MEAN PLATELET VOLUME 11.6 fL (9.0-12.2); MONOCYTES # (AUTO) 0.3 10^3/uL (0.0-1.0); MONOCYTES % (AUTO) 5 % (0-12); NEUTROPHILS # (AUTO) 4.9 10^3/uL (1.8-7.8); NEUTROPHILS % (AUTO) 74 % (42-75); PLATELET COUNT 203 10^3/uL (130-400); WHITE BLOOD COUNT 6.7 10^3/uL (4.3-11.0)
[2023-03-10 08:03] LABS: ALBUMIN 2.8 GM/DL (3.2-4.5)
[2023-03-10 08:04] LABS: POTASSIUM 3.8 MMOL/L (3.6-5.0)
[2023-03-10 08:05] LABS: CALCIUM 7.9 MG/DL (8.5-10.1)
[2023-03-10 08:06] LABS: TOTAL PROTEIN 5.7 GM/DL (6.4-8.2)
[2023-03-10 08:08] LABS: BILIRUBIN,TOTAL 0.4 MG/DL (0.1-1.0)
[2023-03-10 08:10] LABS: CREATININE SERUM 0.69 MG/DL (0.60-1.30)
[2023-03-10] MEDS ORDERED: NS 100 ML (IVPB) BAG IV ONE (08:45)
[2023-03-10] MEDS ORDERED: HOLD METFORMIN - RECEIVED CONTRAST 20 ML VIAL IV SCH (08:45)
[2023-03-10] MEDS ORDERED: IOHEXOL 350 MG/ML 100 ML (OMNIPAQUE 350) VIAL IV ONE (08:45)
[2023-03-10] MEDS ORDERED: BENZOIN TP ONE (09:30)
[2023-03-10] MEDS ORDERED: WITCH HAZEL(TUCKS) 40 EA JAR TOP PRN (09:30)
--- NOTE | 2023-03-10 09:36 | Diagnostic Imaging Report ---
EXAMINATION: CT angiography of the chest. TECHNIQUE: Contrast enhanced thin section helical images were obtained through the chest with intravenous contrast timed for the optimal opacification of the arterial structures per CTA protocol. Post-processing, reconstructions and interpretation of angiographic images of the vessels was performed. 3D MIP reconstructions were performed and reviewed. All CT scans use one or more of the following dose optimizing techniques: automated exposure control, MA and/or KvP adjustment based on a patient size and exam type, or iterative reconstruction. HISTORY: Anemia, shortness of breath COMPARISON: None available. FINDINGS: Vascular: There are no filling defects within the pulmonary arteries. The thoracic aorta is normal in caliber. Thyroid: The thyroid is normal. Mediastinum: Heart size is normal without significant pericardial effusion. No suspicious lymphadenopathy. Lungs and airways: The lungs are clear without consolidation, pleural effusion, or pneumothorax. The airways are normal. Upper abdomen: The subphrenic structures are normal. Musculoskeletal: No suspicious osseous lesion or compression fracture. IMPRESSION: 1. No findings of pulmonary embolism or other acute abnormality in the chest. Dictated by: Dictated on workstation # [id number]
[2023-03-10] MEDS ORDERED: BENZOCAINE/MENTHOL (DERMOPLAST) 56 ML CAN TP ONE (09:37)
[2023-03-10] MEDS: IBUPROFEN 600 MG TABLET PO PRN ×2 (10:40→23:51)
[2023-03-10] MEDS ORDERED: FUROSEMIDE INJECTION 40 MG/4 ML VIAL IVP ONE (10:45)
--- NOTE | 2023-03-10 10:47 | Progress Note ---
TAMMY GASPAR MD, RESIDENT 03/10/23 1047: Subjective Subjective/Events-last exam Patient is continuing to have midsternal chest pressure occurring on and off. Denies any chest pain but does note that she occasionally has shortness of breath with this. She denies any anxiety at this time. In addition she is having a left-sided headache that has been occurring on and off during and after . She states that she believes it is due to her tooth ache that is occurring on the left side of her mouth. She denies any bleeding, notes that it does seem to have been getting a little bit worse lately but notes that she passed 2 golf ball size clots a couple days ago and has not passed any clots since. She does note that she has had issues with anemia in the past but had difficulty being consistent with her oral iron. Denies any issues with preeclampsia or high blood pressure. Review of Systems General: No Fatigue, No Appetite HEENT: Head Aches; No Visual Changes Pulmonary: Dyspnea; No Cough Cardiovascular: Chest Pain, Edema (Left lower extremity worse than right lower extremity); No: Palpitations Gastrointestinal: No: Nausea, Vomiting, Diarrhea Genitourinary: No Dysuria Objective Exam Last Set of Vital Signs Vital Signs Date Time Temp Pulse Resp B/P (MAP) Pulse Ox O2 Delivery O2 Flow Rate FiO2 03/10/23 08:33 100 Room Air 03/10/23 08:00 36.1 86 16 140/93 (109) Capillary Refill : Less Than 3 Seconds General: Alert, Oriented X3 HEENT: Atraumatic Neck: Supple Lungs: Clear to Auscultation Heart: Regular Rate, No Murmurs Abdomen: Normal Bowel Sounds, Soft, Other (Mild tenderness across right upper quadrant, left upper quadrant and epigastric area. Not worse in one spot) Extremities: Other (Noting peripheral edema, worse on the left lower extremity than the right lower extremity, nonpitting noting edema up to the thighs on the left side) Neuro: Normal Speech Psych/Mental Status: Mental Status NL Results/Procedures Lab Laboratory Tests 03/09/23 23:40: White Blood Count 8.3, Red Blood Count 2.92L, Hemoglobin 7.0L, Hematocrit 23L, Mean Corpuscular Volume 78L, Mean Corpuscular Hemoglobin 24L, Mean Corpuscular Hemoglobin Concent 31L, Red Cell Distribution Width 16.8H, Platelet Count 257, Mean Platelet Volume 11.3, Immature Granulocyte % (Auto) 1, Neutrophils (%) (Auto) 73, Lymphocytes (%) (Auto) 19, Monocytes (%) (Auto) 5, Eosinophils (%) (Auto) 3, Basophils (%) (Auto) 0, Neutrophils # (Auto) 6.1, Lymphocytes # (Auto) 1.5, Monocytes # (Auto) 0.4, Eosinophils # (Auto) 0.2, Basophils # (Auto) 0.0, Immature Granulocyte # (Auto) 0.0, Sodium Level 140, Potassium Level 3.5L, Chloride Level 109H, Carbon Dioxide Level 19L, Anion Gap 12, Blood Urea Nitrogen 12, Creatinine 0.78, Estimat Glomerular Filtration Rate 112, BUN/Creatinine Ratio 15, Glucose Level 78, Calcium Level 8.3L, Corrected Calcium 8.9, Magnesium Level 1.8, Total Bilirubin 0.2, Aspartate Amino Transf (AST/SGOT) 26, Alanine Aminotransferase (ALT/SGPT) 32, Alkaline Phosphatase 195H, B-Type Natriuretic Peptide 192.9H, Total Protein 6.5, Albumin 3.2 03/10/23 00:17: Urine Color YELLOW, Urine Clarity CLEAR, Urine pH 6.0, Urine Specific [place] 1.020, Urine Protein NEGATIVE, Urine Glucose (UA) NEGATIVE, Urine Ketones NEGATIVE, Urine Nitrite NEGATIVE, Urine Bilirubin NEGATIVE, Urine Urobilinogen 1.0, Urine Leukocyte Esterase TRACEH, Urine RBC (Auto) 1+H, Urine RBC 5-10H, U rine WBC 0-2, Urine Squamous Epithelial Cells 2-5, Urine Crystals PRESENTH, Urine Amorphous Sediment FEW YANE URATESH, Urine Bacteria TRACE, Urine Casts NONE, Urine Mucus SMALLH, Urine Culture Indicated NO 03/10/23 07:50: White Blood Count 6.7, Red Blood Count 3.00L, Hemoglobin 7.5L, Hematocrit 24L, Mean Corpuscular Volume 79L, Mean Corpuscular Hemoglobin 25, Mean Corpuscular Hemoglobin Concent 32, Red Cell Distribution Width 17.9H, Platelet Count 203, Mean Platelet Volume 11.6, Immature Granulocyte % (Auto) 1, Neutrophils (%) (Auto) 74, Lymphocytes (%) (Auto) 18, Monocytes (%) (Auto) 5, Eosinophils (%) (Auto) 3, Basophils (%) (Auto) 0, Neutrophils # (Auto) 4.9, Lymphocytes # (Auto) 1.2, Monocytes # (Auto) 0.3, Eosinophils # (Auto) 0.2, Basophils # (Auto) 0.0, Immature Granulocyte # (Auto) 0.1, Sodium Level 140, Potassium Level 3.8, Chloride Level 112H, Carbon Dioxide Level 17L, Anion Gap 11, Blood Urea Nitrogen 11, Creatinine 0.69, Estimat Glomerular Filtration Rate 128, BUN/Creatinine Ratio 16, Glucose Level 77, Calcium Level 7.9L, Corrected Calcium 8.9, Total Bilirubin 0.4, Aspartate Amino Transf (AST/SGOT) 23, Alanine Aminotransferase (ALT/SGPT) 28, Alkaline Phosphatase 168H, Total Protein 5.7L, Albumin 2.8L Radiology Chest x-ray (03/09/2023): IMPRESSION: 1. No identified acute cardiopulmonary abnormality. CTA chest (03/10/2023): IMPRESSION: 1. No findings of pulmonary embolism or other acute abnormality in the chest. Assessment/Plan Assessment/Plan Admission Dx Symptomatic anemia Admission Status: Inpatient Order (span 2 midnights) Assessment & Plan Symptomatic PP anemia vs PP cardiomyopathy vs PE (1) anemia Status: Acute Assessment & Plan: 03/10: Patient is status post 1 unit of PRBCs. Improvement of hemoglobin from 7-7.5. Patient is still having chest pressure and shortness of breath which may be secondary to the anemia. We discussed needing iron infusions which patient declined as she stated that last time the line blew and the infusion itself was very painful. She would rather do oral iron. No overt signs of bleeding noted today. -We will start oral iron today -Continue to monitor CBCs daily -Need to monitor symptoms -If hemoglobin drops below 7 again we will likely plan to replete. (2) Lower extremity edema Status: Acute Assessment & Plan: 03/10: Noting worsening lower extremity edema on the left versus the right. Patient does note that this is new since being discharged from the hospital and has been getting worse. Edema is nonpitting at this time. CTA chest was negative for any clots. Ordering left lower extremity venous ultrasound to rule out DVT Continue anticoagulation with Lovenox Hold fluids for now We will give a one-time dose of 40 mg IV Lasix to see if this helps with the edema Monitor I's and O's closely (3) Chest pressure Status: Acute Assessment & Plan: 03/10: Patient continuing to have midsternal chest pressure. May be secondary to anemia. EKG normal sinus and no concerning findings on telemetry. CTA chest negative. Follow-up echocardiogram Continue Tylenol and/or ibuprofen for pain We will continue to monitor symptoms as we work on improving patient's anemia KAREEM MORALES MD 03/10/23 1515: Supervisory-Addendum Brief Supervisory Addendum I personally performed the santos portions of the visit, discussed case with resident and concur with resident documentation of history, physical exam, assessment and treatment plan unless otherwise noted. She reported right sided headache and dental pain to me, otherwise agree with resident documentation. TAMMY GASPAR MD, RESIDENT Mar 10, 2023 10:47 KAREEM MORALES MD Mar 10, 2023 15:15
[2023-03-10] MEDS: FERROUS SULFATE 325 MG (IRON) TABLET PO SCH (12:01)
[2023-03-10] MEDS ORDERED: LABETALOL 5 mg/ml 4 ML SINGLE DOSE SYRINGE IV ONE ×2 (12:15→13:30)
--- NOTE | 2023-03-10 14:02 | Diagnostic Imaging Report ---
INDICATION: Left lower extremity swelling, larger than right leg. 5 days . TECHNIQUE: Multiple real-time grayscale images were obtained over the left lower extremity in various projections. Additional duplex Doppler and color Doppler images were also obtained. CORRELATION STUDY: None FINDINGS: Color and grayscale sonographic images demonstrate no intraluminal defect within the visualized portion of the common femoral, superficial femoral and/or popliteal veins to suggest thrombus formation. These vessels demonstrate normal response to compression and augmentation. No soft tissue fluid collection. IMPRESSION: 1. Negative for deep venous thrombosis of the left leg. Dictated by: Dictated on workstation # [id number]
[2023-03-10] MEDS: ACETAMINOPHEN 500 MG TABLET PO PRN (14:10)
[2023-03-11] VITALS (11 sets, daily range): BP systolic 112–165; BP diastolic 66–109
[2023-03-11] MEDS: ENOXAPARIN 40 MG/0.4 ML SYRINGE SC SCH ×2 (03:01→11:27)
[2023-03-11] MEDS: FERROUS SULFATE 325 MG (IRON) TABLET PO SCH (05:45)
[2023-03-11 05:58] LABS: BASOPHILS % (AUTO) 0 % (0-10); EOSINOPHILS # (AUTO) 0.1 10^3/uL (0.0-0.3); EOSINOPHILS % (AUTO) 3 % (0-10); HEMATOCRIT 25 % (35-52); HEMOGLOBIN 7.9 g/dL (11.5-16.0); LYMPHOCYTES # (AUTO) 1.5 10^3/uL (1.0-4.0); LYMPHOCYTES % (AUTO) 28 % (12-44); MEAN CORPUSCULAR HEMOGLOBIN 25 pg (25-34); MEAN CORPUSCULAR HGB CONC 32 g/dL (32-36); MEAN CORPUSCULAR VOLUME 78 fL (80-99); MEAN PLATELET VOLUME 10.3 fL (9.0-12.2); MONOCYTES # (AUTO) 0.4 10^3/uL (0.0-1.0); MONOCYTES % (AUTO) 8 % (0-12); NEUTROPHILS # (AUTO) 3.4 10^3/uL (1.8-7.8); NEUTROPHILS % (AUTO) 61 % (42-75); PLATELET COUNT 237 10^3/uL (130-400); WHITE BLOOD COUNT 5.5 10^3/uL (4.3-11.0)
[2023-03-11 06:16] LABS: POTASSIUM 3.4 MMOL/L (3.6-5.0)
[2023-03-11 06:17] LABS: CALCIUM 8.1 MG/DL (8.5-10.1)
[2023-03-11 06:18] LABS: TOTAL PROTEIN 6.1 GM/DL (6.4-8.2)
[2023-03-11 06:20] LABS: BILIRUBIN,TOTAL 0.3 MG/DL (0.1-1.0)
[2023-03-11 06:22] LABS: CREATININE SERUM 0.7 MG/DL (0.60-1.30)
--- NOTE | 2023-03-11 08:10 | Progress Note ---
VICTORINA SOSA MD,RESIDENT 03/11/23 0810: Subjective Subjective/Events-last exam No acute events overnight. Pt resting in bed, complains of moderate headache this morning and BL LE edema. Objective Exam Last Set of Vital Signs Vital Signs Date Time Temp Pulse Resp B/P (MAP) Pulse Ox O2 Delivery O2 Flow Rate FiO2 03/11/23 08:00 36.7 65 16 144/100 (115) 98 Room Air Capillary Refill : Less Than 3 Seconds I&O Intake and Output 03/11/23 00:00 Intake Total 1400 ml Balance 1400 ml Intake Oral 1400 ml # Voids 10 Daily Weight Change No General: Alert, Oriented X3, Cooperative, No Acute Distress HEENT: Atraumatic Neck: Supple Lungs: Clear to Auscultation Heart: Regular Rate Abdomen: Soft Extremities: Other (BL non-pitting edema) Neuro: Normal Speech, Normal Tone Psych/Mental Status: Mental Status NL, Mood NL Results/Procedures Lab Laboratory Tests 03/11/23 05:47: White Blood Count 5.5, Red Blood Count 3.20L, Hemoglobin 7.9L, Hematocrit 25L, Mean Corpuscular Volume 78L, Mean Corpuscular Hemoglobin 25, Mean Corpuscular Hemoglobin Concent 32, Red Cell Distribution Width 17.7H, Platelet Count 237, Mean Platelet Volume 10.3, Immature Granulocyte % (Auto) 1, Neutrophils (%) (Auto) 61, Lymphocytes (%) (Auto) 28, Monocytes (%) (Auto) 8, Eosinophils (%) (Auto) 3, Basophils (%) (Auto) 0, Neutrophils # (Auto) 3.4, Lymphocytes # (Auto) 1.5, Monocytes # (Auto) 0.4, Eosinophils # (Auto) 0.1, Basophils # (Auto) 0.0, Immature Granulocyte # (Auto) 0.0, Sodium Level 140, Potassium Level 3.4L, Chlor jes Level 109H, Carbon Dioxide Level 20L, Anion Gap 11, Blood Urea Nitrogen 10, Creatinine 0.70, Estimat Glomerular Filtration Rate 128, BUN/Creatinine Ratio 14, Glucose Level 81, Calcium Level 8.1L, Corrected Calcium 8.9, Total Bilirubin 0.3, Aspartate Amino Transf (AST/SGOT) 18, Alanine Aminotransferase (ALT/SGPT) 24, Alkaline Phosphatase 173H, Total Protein 6.1L, Albumin 3.0L Radiology Chest x-ray (03/09/2023): IMPRESSION: 1. No identified acute cardiopulmonary abnormality. CTA chest (03/10/2023): IMPRESSION: 1. No findings of pulmonary embolism or other acute abnormality in the chest. Assessment/Plan Assessment/Plan Admission Status: Observation Reason for Inpatient Admission: HTN Assessment & Plan Symptomatic PP anemia vs PP cardiomyopathy vs PE (1) anemia Status: Acute Assessment & Plan: Patient is status post 1 unit of PRBCs. Improvement of hemoglobin from 7-7.5. Discussed needing iron infusions which patient declined as she stated that last time the line blew and the infusion itself was very painful. She would rather do oral iron. No acute bleeding, normal lochia -We will start oral iron -Continue to monitor CBCs daily -Need to monitor symptoms -If hemoglobin drops below 7 again will transfuse pRBCs (2) hypertension Assessment & Plan: PLAN: Rpt UA P:C ratio Labetolol for HTN, will switch or oral agent if HTN persists Telemetry Consider starting MgSO4 for pre-eclampsia if P:C elevated >0.3 (3) Lower extremity edema Status: Acute Assessment & Plan: Noting worsening lower extremity edema on the left versus the right. Patient does note that this is new since being discharged from the hospital and has been getting worse. Edema is nonpitting at this time. CTA chest was negative for any clots. Left lower extremity venous ultrasound - NEG for DVT Continue anticoagulation with Lovenox Hold fluids for now We will give a one-time dose of 40 mg IV Lasix to see if this helps with the edema Monitor I's and O's closely (4) Chest pressure Status: Acute Assessment & Plan: Pt denies chest pressure this morning 03/11 EKG normal sinus and no concerning findings on telemetry. CTA chest negative. - Continue Tylenol and/or ibuprofen for pain - We will continue to monitor symptoms as we work on improving patient's anemia - Echo LVEF 55-60% - Will CTM - Head CT NEG for acute processes KAREEM MORALES MD 03/11/23 4237: Supervisory-Addendum Brief Supervisory Addendum I personally performed the santos portions of the visit, discussed case with resident and concur with resident documentation of history, physical exam, assessment and treatment plan unless otherwise noted. Pt continues to complain of intermittent headache and tooth pain. No obvious abscess on oral exam, does have some cavities noted in lower molars. CT head done due to persistent headache and HTN, unremarkable. Neuro exam normal today again CNII-XII nml, PERRLA, EOMI, 5/5 strength upper and lower extremities, normal FTN testing. Did require another dose of IV labetalol this am, will start oral BP med. Lasix was given yesterday, given normal echo and non-pitting edema and patient request, will not repeat dose today. No urine on spot UA initially, given persistent sy mptoms and HTN, will check pr/cr ratio. VICTORINA SOSA MD,RESIDENT Mar 11, 2023 08:10 KAREEM MORALES MD Mar 11, 2023 21:51
[2023-03-11] MEDS ORDERED: LABETALOL 5 mg/ml 4 ML SINGLE DOSE SYRINGE IV ONE (09:00)
--- NOTE | 2023-03-11 09:46 | Diagnostic Imaging Report ---
PROCEDURE: CT head wo r/o stroke. TECHNIQUE: Multiple contiguous axial images were obtained through the brain without the use of intravenous contrast. Auto Exposure Controls were utilized during the CT exam to meet ALARA standards for radiation dose reduction. INDICATION: Headache COMPARISON: None. Findings: Normal size of the ventricles. Calcified atherosclerosis of the bilateral cavernous and paraclinoid internal carotid arteries and intracranial vertebral arteries. No intra- or extra-axial mass or fluid collection. No acute hemorrhage. The ventricles are normal in size, shape, and morphology. The francis-white matter junction is normal. The subarachnoid cisterns are patent. The visualized paranasal sinuses are normal. The visualized portions of the orbits and globes are normal. The mastoid air cells are clear. The fitter placer topogram shows no lytic lesion or fracture. Impression: No acute intracranial hemorrhage. No large vascular territory kolb-white loss. No intracranial mass, midline shift, or hydrocephalus. Dictated by: Dictated on workstation # [id number]
[2023-03-11] MEDS: ACETAMINOPHEN 500 MG TABLET PO PRN ×2 (09:59→16:44)
[2023-03-11] MEDS ORDERED: oxyCODONE IMMEDIATE RELEASE 5 MG TABLET PO ONE (10:30)
[2023-03-11] MEDS: IBUPROFEN 600 MG TABLET PO PRN ×2 (15:13→21:28)
[2023-03-11] MEDS ORDERED: POTASSIUM CHLORIDE 20 MEQ TABLET PO ONE (22:00)
[2023-03-12 03:18] VITALS: BP 143/88
[2023-03-12 05:09] LABS: BASOPHILS % (AUTO) 0 % (0-10); EOSINOPHILS # (AUTO) 0.2 10^3/uL (0.0-0.3); EOSINOPHILS % (AUTO) 3 % (0-10); HEMATOCRIT 27 % (35-52); HEMOGLOBIN 8.5 g/dL (11.5-16.0); LYMPHOCYTES # (AUTO) 1.6 10^3/uL (1.0-4.0); LYMPHOCYTES % (AUTO) 28 % (12-44); MEAN CORPUSCULAR HEMOGLOBIN 25 pg (25-34); MEAN CORPUSCULAR HGB CONC 31 g/dL (32-36); MEAN CORPUSCULAR VOLUME 79 fL (80-99); MONOCYTES # (AUTO) 0.4 10^3/uL (0.0-1.0); MONOCYTES % (AUTO) 7 % (0-12); NEUTROPHILS # (AUTO) 3.5 10^3/uL (1.8-7.8); NEUTROPHILS % (AUTO) 61 % (42-75); PLATELET COUNT 296 10^3/uL (130-400); WHITE BLOOD COUNT 5.8 10^3/uL (4.3-11.0)
[2023-03-12 05:19] LABS: ALBUMIN 3.3 GM/DL (3.2-4.5)
[2023-03-12 05:20] LABS: POTASSIUM 3.7 MMOL/L (3.6-5.0)
[2023-03-12 05:21] LABS: CALCIUM 8.7 MG/DL (8.5-10.1)
[2023-03-12 05:22] LABS: TOTAL PROTEIN 6.6 GM/DL (6.4-8.2)
[2023-03-12 05:24] LABS: BILIRUBIN,TOTAL 0.4 MG/DL (0.1-1.0)
[2023-03-12 05:26] LABS: CREATININE SERUM 0.73 MG/DL (0.60-1.30)
--- NOTE | 2023-03-12 06:44 | Progress Note ---
Objective Exam Last Set of Vital Signs Vital Signs Date Time Temp Pulse Resp B/P (MAP) Pulse Ox O2 Delivery O2 Flow Rate FiO2 03/12/23 03:18 36.1 71 16 143/88 (106) 100 Room Air Capillary Refill : Less Than 3 Seconds I&O Intake and Output 03/12/23 00:00 Intake Total 2910 ml Balance 2910 ml Intake Oral 2410 ml IV Total 500 ml # Voids 10 Results/Procedures Lab Laboratory Tests 03/11/23 15:15: Urine Protein 34H, Urine Creatinine 259H, Urine Protein/Creatinine Ratio 0.13 03/12/23 04:34: White Blood Count 5.8, Red Blood Count 3.47L, Hemoglobin 8.5L, Hematocrit 27L, Mean Corpuscular Volume 79L, Mean Corpuscular Hemoglobin 25, Mean Corpuscular Hemoglobin Concent 31L, Red Cell Distribution Width 18.3H, Platelet Count 296, Mean Platelet Volume 11.0, Immature Granulocyte % (Auto) 0, Neutrophils (%) (Auto) 61, Lymphocytes (%) (Auto) 28, Monocytes (%) (Auto) 7, Eosinophils (%) (Auto) 3, Basophils (%) (Auto) 0, Neutrophils # (Auto) 3.5, Lymphocytes # (Auto) 1.6, Monocytes # (Auto) 0.4, Eosinophils # (Auto) 0.2, Basophils # (Auto) 0.0, Immature Granulocyte # (Auto) 0.0, Sodium Level 140, Potassium Level 3.7, Chloride Level 109H, Carbon Dioxide Level 18L, Anion Gap 13, Blood Urea Nitrogen 11, Creatinine 0.73, Estimat Glomerular Filtration Rate 121, BUN/Creatinine Ratio 15, Glucose Level 83, Calcium Level 8.7, Corrected Calcium 9.3, Total Bilirubin 0.4, Aspartate Amino Transf (AST/SGOT) 21, Alanine Aminotransferase (ALT/SGPT) 23, Alkaline Phosphatase 176H, Total Protein 6.6, Albumin 3.3 Radiology Chest x-ray (03/09/2023): IMPRESSION: 1. No identified acute cardiopulmonary abnormality. CTA chest (03/10/2023): IMPRESSION: 1. No findings of pulmonary embolism or other acute abnormality in the chest. Assessment/Plan Assessment/Plan Assessment & Plan Symptomatic PP anemia vs PP cardiomyopathy vs PE (1) anemia Status: Acute Assessment & Plan: Patient is status post 1 unit of PRBCs. Improvement of hemoglobin from 7-7.5. Discussed needing iron infusions which patient declined as she stated that last time the line blew and the infusion itself was very painful. She would rather do oral iron. No acute bleeding, normal lochia -We will start oral iron -Continue to monitor CBCs daily -Need to monitor symptoms -If hemoglobin drops below 7 again will transfuse pRBCs (2) hypertension Assessment & Plan: PLAN: Rpt UA P:C ratio Labetolol for HTN, will switch or oral agent if HTN persists Telemetry Consider starting MgSO4 for pre-eclampsia if P:C elevated >0.3 (3) Lower extremity edema Status: Acute Assessment & Plan: Noting worsening lower extremity edema on the left versus the right. Patient does note that this is [facility] and has been getting worse. Edema is nonpitting at this time. CTA chest was negative for any clots. Left lower extremity venous ultrasound - NEG for DVT Continue anticoagulation with Lovenox Hold fluids for now We will give a one-time dose of 40 mg IV Lasix to see if this helps with the edema Monitor I's and O's closely (4) Chest pressure Status: Acute Assessment & Plan: Pt denies chest pressure this morning 10 EKG normal sinus and no concerning findings on telemetry. CTA chest negative. - Continue Tylenol and/or ibuprofen for pain - We will continue to monitor symptoms as we work on improving patient's anemia - Echo LVEF 55-60% - Will CTM - Head CT NEG for acute processes VICTORINA SOSA MD,RESIDENT Mar 12, 2023 06:44
[2023-03-12] MEDS: FERROUS SULFATE 325 MG (IRON) TABLET PO SCH (07:04)
[2023-03-12 07:35] VITALS: BP 111/77
[2023-03-12 11:34] VITALS: BP 145/92
[2023-03-12] MEDS ORDERED: HYDR12.56 PO (12:12)
--- NOTE | 2023-03-12 12:13 | Discharge Summary ---
VICTORINA SOSA MD,RESIDENT 03/12/23 1213: Discharge Summary Hospital Course Problems/Diagnosis: (1) anemia Status: Acute Assessment & Plan: Patient is status post 1 unit of PRBCs. Improvement of hemoglobin from 7-7.5. Discussed needing iron infusions which patient declined as she stated that last time the line blew and the infusion itself was very painful. She would rather do oral iron. No acute bleeding, normal lochia -We will start oral iron -Continue to monitor CBCs daily -Need to monitor symptoms -If hemoglobin drops below 7 again will transfuse pRBCs (2) hypertension Assessment & Plan: PLAN: Rpt UA P:C ratio Labetolol for HTN, will switch or oral agent if HTN persists Telemetry Consider starting MgSO4 for pre-eclampsia if P:C elevated >0.3 (3) Lower extremity edema Status: Acute Assessment & Plan: Noting worsening lower extremity edema on the left versus the right. Patient does note that this is new since being discharged from the hospital and has been getting worse. Edema is nonpitting at this time. CTA chest was negative for any clots. Left lower extremity venous ultrasound - NEG for DVT Continue anticoagulation with Lovenox Hold fluids for now We will give a one-time dose of 40 mg IV Lasix to see if this helps with the edema Monitor I's and O's closely (4) Chest pressure Status: Acute Assessment & Plan: Pt denies chest pressure this morning 10/ EKG normal sinus and no concerning findings on telemetry. CTA chest negative. - Continue Tylenol and/or ibuprofen for pain - We will continue to monitor symptoms as we work on improving patient's anemia - Echo LVEF 55-60% - Will CTM - Head CT NEG for acute processes Hospital Course Date of Admission: Mar 10, 2023 at 01:56 Admission Diagnosis : Family Physician/Provider: Rain Soares MD Date of Discharge: 03/12/23 Discharge Diagnosis: HTN Hospital Course: Pt admitted for anemia (7), HTN, headaches, chest pressure, and BL LE edema on PPD 4 from an uncomplicated spontaneous vaginal delivery of a term, live . She was transfused 1U pRBCs, her hgb remained stable throughout her stay. Her BP remained above 140 systolic. Cardiac workup was unremarkable, CTA chest was negative for PE. Pt remained stable on RA throughout her hospital stay. Amlodipine was given inpatient for HTN control and she was discharged home on hydrochlorothiazide given her BL LE edema. She will follow-up within 1 week with her PCP and start iron therapy for her anemia. Labs and Pending Lab Test: Laboratory Tests 03/11/23 15:15: Urine Protein 34H, Urine Creatinine 259H, Urine Total Protein 24 Hour [Pending], Urine Protein/Creatinine Ratio 0.13 03/12/23 04:34: White Blood Count 5.8, Red Blood Count 3.47L, Hemoglobin 8.5L, Hematocrit 27L, Mean Corpuscular Volume 79L, Mean Corpuscular Hemoglobin 25, Mean Corpuscular Hemoglobin Concent 31L, Red Cell Distribution Width 18.3H, Platelet Count 296, Mean Platelet Volume 11.0, Immature Granulocyte % (Auto) 0, Neutrophils (%) (Auto) 61, Lymphocytes (%) (Auto) 28, Monocytes (%) (Auto) 7, Eosinophils (%) (Auto) 3, Basophils (%) (Auto) 0, Neutrophils # (Auto) 3.5, Lymphocytes # (Auto) 1.6, Monocytes # (Auto) 0.4, Eosinophils # (Auto) 0.2, Basophils # (Auto) 0.0, Immature Granulocyte # (Auto) 0.0, Sodium Level 140, Potassium Level 3.7, Chloride Level 109H, Carbon Dioxide Level 18L, Anion Gap 13, Blood Urea Nitrogen 11, Creatinine 0.73, Estimat Glomerular Filtration Rate 121, BUN/Creatinine Ratio 15, Glucose Level 83, Calcium Level 8.7, Corrected Calcium 9.3, Total Bilirubin 0.4, Aspartate Amino Transf (AST/SGOT) 21, Alanine Aminotransferase (ALT/SGPT) 23, Alkaline Phosphatase 176H, Total Protein 6.6, Albumin 3.3 Home Meds Active Hydrochlorothiazide 12.5 Mg Tablet 12.5 Mg PO DAILY 30 Days Ibu (Ibuprofen) 600 Mg Tablet 600 Mg PO Q6H Reported Iron (Ferrous Sulfate) 325 Mg Tablet 325 Mg PO DAILY Vitamin Tablet ( Vit No.124/Iron/FA) 1 Each Tablet 1 Each PO DAILY Assessment/Pt DC Instructions Late presentation of gHTN, anemia requiring transfusion Discharge Physical Examination Allergies: Coded Allergies: No Known Drug Allergies (Unverified , 05/21/10) General Appearance: No Apparent Distress Respiratory: Lungs Clear, Normal Breath Sounds, No Accessory Muscle Use, No Respiratory Distress Cardiovascular: Regular Rate, Rhythm Extremity: Pedal Edema, Swelling Skin: Warm/Dry Neurologic/Psychiatric: Alert, Oriented x3, Normal Mood/Affect KAREEM MORALES MD 03/12/232045: Discharge Summary Discharge Physical Examination Allergies: Coded Allergies: No Known Drug Allergies (Unverified , 05/21/10) Supervisory-Addendum Brief Supervisory Addendum I personally performed the santos portions of the visit, discussed case with resident and concur with resident documentation of history, physical exam, assessment and treatment plan unless otherwise noted. VICTORINA SOSA MD,RESIDENT Mar 12, 2023 12:13 KAREEM MORALES MD Mar 12, 2023 20:46
[2023-03-12] MEDS: ACETAMINOPHEN 500 MG TABLET PO PRN (13:34)
[2023-03-12 15:45] VITALS: BP 145/92
== END 2023-03-12 15:40 | disposition home or self-care (01) ==
LOC: EDUNIT# 23:05 → ER 23:09 → ICU 23:10 → UNDOADMOB 03-10 01:56 → ICU 03-10 01:56 → CSD 03-10 02:05 → UNDODISOB 03-12 15:40
PROVIDERS: ADMIT Family Medicine; ATTEND Family Medicine
DX: O16.5 Unspecified maternal hypertension, complicating the puerperium (principal); O90.81 Anemia of the puerperium; R60.0 Localized edema; R07.89 Other chest pain; Z77.22 Contact with and (suspected) exposure to environmental tobacco smoke (acute) (chronic)
CPT/HCPCS: 36430; 51701; 70450; 71045; 71275; 80053 ×4; 81000; 82570 ×2; 83735; 83880; 84156 ×2; 85025 ×3; 86850; 86900; 86901; 86920; 93005 ×3; 93971; 96372; 96375; 96376 ×2; 99284; C8929; G0378; P9016; 36415; 93306